=== PATIENT | female | born 1980 | race Caucasian/White ===

== ENCOUNTER 2018-05-28 03:12 | Emergency (ER) | payer SELFPAY ==
[~2018-05-28] VITALS: Ht 160 cm; Wt 56.4 kg
[2018-05-28] MEDS ORDERED: IV NORMAL SALINE 1,000ML 1,000 ML IV ONE (03:15)
[2018-05-28 03:43] LABS: BASO # 0.1 x10^3/uL (0.0-0.2); BASO % 1 % (0-3); EOS # 0.2 x10^3/uL (0.0-0.7); EOS % 3 % (0-3); HEMATOCRIT 43.3 % (36.0-47.0); HEMOGLOBIN 14.7 g/dL (12.0-15.5); LYMPH # 2.2 x10^3/uL (1.0-4.8); LYMPH % 28 % (24-48); MEAN CORPUSCULAR HEMOGLOBIN 31 pg (25-35); MEAN CORPUSCULAR HGB CONC 34 g/dL (31-37); MEAN CORPUSCULAR VOLUME 90 fL (79-100); MONO # 0.6 x10^3/uL (0.0-1.1); MONO % 7 % (0-9); NEUT # 4.7 x10^3uL (1.8-7.7); NEUT % 61 % (31-73); PLATELET COUNT 315 x10^3/uL (140-400); RED BLOOD COUNT 4.83 x10^6/uL (3.50-5.40); RED CELL DISTRIBUTION WIDTH 14.5 % (11.5-14.5); WHITE BLOOD COUNT 7.8 x10^3/uL (4.0-11.0)
[2018-05-28 03:44] LABS: BILIRUBIN,URINE NEG (NEG); CLARITY,URINE CLEAR; COLOR,URINE STRAW; GLUCOSE,URINE NEG (NEG)
[2018-05-28 03:45] LABS: BACTERIA,URINE FEW /HPF (0-FEW); NITRITE,URINE NEG (NEG); RBC,URINE RARE /HPF (0-2); SQUAMOUS EPITHELIAL CELL,UR MOD /LPF; UROBILINOGEN,URINE 0.2 mg/dL (0.2 mg/dL); WBC,URINE RARE /HPF (0-4)
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
[2018-05-28 03:49] VITALS: BP 146/95
[2018-05-28 03:50] LABS: BARBITURATES NEG (NEG); BENZODIAZEPINES NEG (NEG); CANNABINOIDS NEG (NEG); COCAINE NEG (NEG); METHADONE NEG (NEG); OPIATES NEG (NEG); PHENCYCLIDINE NEG (NEG)
[2018-05-28] MEDS ORDERED: NALOXONE 2 MG/2 ML DISP.SYRIN. IV ONE (04:00)
[2018-05-28 04:01] LABS: AMPHETAMINE/METHAMPHETAMINE POS (NEG)
[2018-05-28 04:05] LABS: ALBUMIN 3.5 g/dL (3.4-5.0); ALBUMIN/GLOBULIN RATIO 1.1 (1.0-1.7); CALCIUM 8.2 mg/dL (8.5-10.1); CREATININE 0.7 mg/dL (0.6-1.0); GFR 93.6; POTASSIUM 3.4 mmol/L (3.5-5.1); TOTAL BILIRUBIN 0.2 mg/dL (0.2-1.0); TOTAL PROTEIN 6.8 g/dL (6.4-8.2)
--- NOTE | 2018-05-28 04:19 | RAD ---
RS Compliance Statement: One or more of the following individualized dose reduction techniques were utilized for this examination: 1. Automated exposure control 2. Adjustment of the mA and/or kV according to patient size 3. Use of iterative reconstruction technique CT HEAD WITHOUT CONTRAST History: Unresponsive Comparison: None. Procedure: Axial images are obtained of the head from the skull base through the vertex without IV contrast. Findings: The ventricles and sulci are normal for the patient's age. No mass-effect, midline shift, hemorrhage, extra-axial fluid collection, or obvious acute infarction is identified. Basilar cisterns are patent. Bone windows demonstrate no acute calvarial abnormality. The visualized paranasal sinuses are clear. Mastoid air cells are well aerated. IMPRESSION: No acute intracranial abnormality. Electronically signed by: Aidan Thomas MD (05/28/2018 4:16 AM) [facility]
--- NOTE | 2018-05-28 06:28 | EKG ---
[address] [address] Test Date: 2018-05-28 Test Time: 03:22:44 Pat Name: REDD ZALDIVAR Department: Room: Gender: F Tool Die Maker: : 1980 Requested By: STONEY DWYER Order Number: [id number] Reading MD: Maxmio Sierra MD Measurements Intervals [place] Rate: 98 P: 45 UT: 152 QRS: 40 QRSD: 82 T: 68 QT: 350 QTc: 449 Interpretive Statements SINUS RHYTHM Electronically Signed On 05-31-2018 12:01:19 CDT by Maximo Sierra MD
== END 2018-05-28 04:24 | disposition short-term general hospital (02) ==
LOC: ER 03:12
DX: F15.90 Other stimulant use, unspecified, uncomplicated (principal); F10.10 Alcohol abuse, uncomplicated; Y90.6 Blood alcohol level of 120-199 mg/100 ml
CPT/HCPCS: 36415; 70450; 80053; 80307; 81001; 83605; 85025; 93005; 96374; 99285; G0480; J2310; G0479; J7030

== ENCOUNTER 2019-10-09 18:55 | Inpatient (IN) | payer SELFPAY ==
[~2019-10-09] VITALS: Ht 160 cm; Wt 61.9 kg
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
[2019-10-09] MEDS ORDERED: IV RINGERS SOLUTION,LACTATED 1,000 ML IV SCH (19:19)
[2019-10-09] MEDS ORDERED: MVI, ADULT NO.4 WITH VIT K 10 ML, FOLIC ACID INJ 1 MG, THIAMINE INJ 100 MG in IV RINGER... IV ONE ×4 (19:30)
[2019-10-09] MEDS ORDERED: THIAMINE 200 MG/2 ML VIAL. IV ONE (19:30)
[2019-10-09 19:32] LABS: BASO # 0.1 x10^3/uL (0.0-0.2); BASO % 1 % (0-3); EOS # 0.2 x10^3/uL (0.0-0.7); EOS % 3 % (0-3); HEMATOCRIT 44.2 % (36.0-47.0); HEMOGLOBIN 14.8 g/dL (12.0-15.5); LYMPH # 2.8 x10^3/uL (1.0-4.8); LYMPH % 44 % (24-48); MEAN CORPUSCULAR HEMOGLOBIN 30 pg (25-35); MEAN CORPUSCULAR HGB CONC 33 g/dL (31-37); MEAN CORPUSCULAR VOLUME 91 fL (79-100); MONO # 0.5 x10^3/uL (0.0-1.1); MONO % 8 % (0-9); NEUT # 2.8 x10^3uL (1.8-7.7); NEUT % 43 % (31-73); PLATELET COUNT 331 x10^3/uL (140-400); RED BLOOD COUNT 4.86 x10^6/uL (3.50-5.40); RED CELL DISTRIBUTION WIDTH 14.1 % (11.5-14.5); WHITE BLOOD COUNT 6.4 x10^3/uL (4.0-11.0)
[2019-10-09 19:36] LABS: CALCIUM 8.4 mg/dL (8.5-10.1); CREATININE 0.8 mg/dL (0.6-1.0); GFR 79.4; POTASSIUM 3.9 mmol/L (3.5-5.1)
[2019-10-09 19:37] LABS: ETHANOL < 10 mg/dL (0-10); SALIC 2.8 mg/dL (2.8-20.0)
[2019-10-09 19:41] LABS: BILIRUBIN,URINE NEG (NEG); CLARITY,URINE HAZY; COLOR,URINE YELLOW; GLUCOSE,URINE NEG (NEG)
[2019-10-09 19:42] LABS: NITRITE,URINE NEG (NEG); UROBILINOGEN,URINE 0.2 mg/dL (0.2 mg/dL)
[2019-10-09 19:44] LABS: BGAS PH 7.4 (7.35-7.45)
[2019-10-09 19:44] LABS: BARBITURATES NEG (NEG); BENZODIAZEPINES POS (NEG); CANNABINOIDS NEG (NEG); COCAINE NEG (NEG); METHADONE NEG (NEG); OPIATES POS (NEG); PHENCYCLIDINE NEG (NEG)
[2019-10-09 19:48] LABS: ALBUMIN 3.4 g/dL (3.4-5.0); DIRECT BILIRUBIN 0.1 mg/dL (0.0-0.2); TOTAL BILIRUBIN 0.2 mg/dL (0.2-1.0); TOTAL PROTEIN 6.5 g/dL (6.4-8.2)
[2019-10-09 19:49] LABS: AMPHETAMINE/METHAMPHETAMINE POS (NEG)
[2019-10-09 19:50] LABS: BACTERIA,URINE FEW /HPF (0-FEW); RBC,URINE OCC /HPF (0-2)
[2019-10-09] MEDS ORDERED: ONDANSETRON PF 4 MG/2 ML VIAL. IV PRN (20:00)
[2019-10-09] MEDS ORDERED: IPRATRPIUM/ALBUTEROL 0.5/2.5MG 3 ML NEBU. NEB SCH (20:00)
--- NOTE | 2019-10-09 20:04 | RAD ---
INDICATION: Altered mental status COMPARISON: None. FINDINGS: Single view of chest obtained. No focal airspace consolidation. Cardiomediastinal contour unremarkable. No acute osseous abnormality. IMPRESSION: * No focal airspace consolidation or edema. Electronically signed by: David Ku MD (10/09/2019 8:00 PM) [facility] [place]
--- NOTE | 2019-10-09 20:35 | NUR ---
Admission Note: Pt transported via EMS from ED to ICU room 2. Pt moved from cart to bed with four person assist, pt slept through transport. VSS, no c/o pain or n/v at this time. [place] to dependent drainage. IV sites x2 patent and intact. Family here to see pt. Advised pt would be allowed visitors for a short time and then no visitors until after seen my physician and cleared medically and by psych. Family agrees.
[2019-10-09 20:47] VITALS: BP 126/85
[2019-10-09 21:00] VITALS: BP 107/83
[2019-10-09] MEDS ORDERED: IPRATRPIUM/ALBUTEROL 0.5/2.5MG 3 ML NEBU. NEB PRN (21:00)
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
--- NOTE | 2019-10-09 21:45 | NUR ---
Suicide risk assessment completed at time of admission w/o family present, pt denied wanting to harm herself. Asked again after family left and pt still states she did not want to harm herself. Pt would not expand on what medications she specifically took and when.
[2019-10-09 22:00] VITALS: BP 98/64
[2019-10-09] MEDS: IV RINGERS SOLUTION,LACTATED 1,000 ML IV SCH (22:03)
[2019-10-09 23:00] VITALS: BP 92/62
[2019-10-09 23:46] LABS: SALIC 2.5 mg/dL (2.8-20.0)
[2019-10-09 23:57] LABS: ACETAMIN 32.3 mcg/mL (10-30)
[2019-10-10] VITALS (11 sets, daily range): BP systolic 92–106; BP diastolic 57–76
[2019-10-10] MEDS: IV RINGERS SOLUTION,LACTATED 1,000 ML IV SCH ×2 (02:59→08:27)
--- NOTE | 2019-10-10 05:54 | NUR ---
Pt woke up this am demanding to leave hospital. Advised pt she would need to see the physician first, pt insists on leaving hospital. Pt will stay long enough to review morning labs. Will continue to monitor.
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
--- NOTE | 2019-10-10 06:15 | EKG ---
[address] [address] Test Date: 2019-10-09 Test Time: 19:04:45 Pat Name: REDD ZALDIVAR Department: Room: Gender: F Hand Presser: : 1980 Requested By: DAVID BATES Order Number: [id number] Reading MD: Measurements Intervals [place] Rate: 83 P: 64 IA: 142 QRS: 44 QRSD: 80 T: 52 QT: 368 QTc: 438 Interpretive Statements SINUS RHYTHM CONSIDER RIGHT VENTRICULAR HYPERTROPHY QRS(T) CONTOUR ABNORMALITY CONSIDER ANTEROLATERAL MYOCARDIAL DAMAGE POSSIBLY ABNORMAL ECG RI6.01 No previous ECG available for comparison
[2019-10-10 06:41] LABS: BASO # 0.1 x10^3/uL (0.0-0.2); BASO % 1 % (0-3); EOS # 0.2 x10^3/uL (0.0-0.7); EOS % 4 % (0-3); HEMATOCRIT 40.6 % (36.0-47.0); HEMOGLOBIN 13.5 g/dL (12.0-15.5); LYMPH # 3.5 x10^3/uL (1.0-4.8); LYMPH % 60 % (24-48); MEAN CORPUSCULAR HEMOGLOBIN 30 pg (25-35); MEAN CORPUSCULAR HGB CONC 33 g/dL (31-37); MEAN CORPUSCULAR VOLUME 91 fL (79-100); MONO # 0.5 x10^3/uL (0.0-1.1); MONO % 9 % (0-9); NEUT # 1.5 x10^3uL (1.8-7.7); NEUT % 26 % (31-73); PLATELET COUNT 265 x10^3/uL (140-400); RED BLOOD COUNT 4.44 x10^6/uL (3.50-5.40); RED CELL DISTRIBUTION WIDTH 14.3 % (11.5-14.5); WHITE BLOOD COUNT 5.9 x10^3/uL (4.0-11.0)
[2019-10-10 06:49] LABS: CALCIUM 7.8 mg/dL (8.5-10.1); CREATININE 0.8 mg/dL (0.6-1.0); GFR 79.4; POTASSIUM 3.9 mmol/L (3.5-5.1)
[2019-10-10 06:54] LABS: ACETAMIN 17.2 mcg/mL (10-30); SALIC 2.4 mg/dL (2.8-20.0)
[2019-10-10 08:39] LABS: % ATYL 2 % (0-0); % EOS 1 % (0-5); % LYMPHS 60 % (24-48); % MONOS 8 % (0-10); % SEGS 29 % (35-66); PLT ESTIMATE ADEQUATE (ADEQUATE)
[2019-10-10] MEDS ORDERED: MVI, ADULT NO.4 WITH VIT K 10 ML, FOLIC ACID INJ 1 MG, THIAMINE INJ 100 MG in IV RINGER... IV SCH ×4 (09:00)
--- NOTE | 2019-10-10 13:01 | NUR ---
Discharge Note: AGAINST MEDICAL ADVICE: Patient requested to leave AMA. Stated " i don't have to stay here, I am leaving now." This nurse educated patient on the risks and consequences involved in leaving the hospital at this time. Patient verbally verified understanding of education received. Patient was alert and oriented x4, speech clear, and was able to make wants and needs known. Patient left hospital with daughter at side. Dr. Steiner verbalyl notified, security verbally notified, supervisor backfilling verbally notified.
--- NOTE | 2019-10-10 23:30 | NUR ---
Poison Control called to follow up with pt's status. Informed them that pt left AMA earlier today around 1300. Poison Control requesting lab results from this AM draw and results given that we had. Poison Control asked for labs that we did not draw this AM. Poison Control requesting that if we still have blood available to run test on that they would like to run some. Requesting AST, ALT, INR and total bilirubin. Dr Steiner called and gave orders. Lab informed and will run what they can on the blood that we have. Follow up call with Poison Control at .
[2019-10-11 00:09] LABS: ALBUMIN 2.7 g/dL (3.4-5.0); DIRECT BILIRUBIN 0.1 mg/dL (0.0-0.2); TOTAL BILIRUBIN 0.1 mg/dL (0.2-1.0); TOTAL PROTEIN 5.2 g/dL (6.4-8.2)
== END 2019-10-10 13:06 | disposition left against medical advice (07) | DRG 918 ==
LOC: ER 18:55 → ICU 19:45
PROVIDERS: ADMIT Internal Medicine; ATTEND Internal Medicine
DX: T43.621A Poisoning by amphetamines, accidental (unintentional), initial encounter (principal); Y92.89 Other specified places as the place of occurrence of the external cause; Z79.899 Other long term (current) drug therapy; Z53.29 Procedure and treatment not carried out because of patient's decision for other reasons
CPT/HCPCS: 36415; 36600; 51702; 71045; 80048; 80076; 80307; 80329; 81001; 82550; 82803; 83690; 83735; 83880; 84443; 84484; 84702; 85007; 85025; 85379; 85610; 85730; 87086; 93005; 96365; G0480; J7120; 82003; 99285-25

== ENCOUNTER 2022-02-10 13:18 | Emergency (ER) | payer SELFPAY ==
[~2022-02-10] VITALS: Ht 160 cm; Wt 64.5 kg
[2022-02-10] MEDS ORDERED: IV NORMAL SALINE 1,000ML 1,000 ML IV SCH (14:15)
[2022-02-10] MEDS ORDERED: ONDANSETRON PF 4 MG/2 ML VIAL. IVP ONE (14:15)
--- NOTE | 2022-02-10 14:38 | PHYS DOC ---
Past History Past Medical History: No Pertinent History Past Surgical History: No Surgical History Alcohol Use: Heavy Drug Use: Benzodiazepine, Methamphetamine Adult General Chief Complaint Chief Complaint: ABDOMINAL PAIN HPI HPI Patient is a 41 year old female who presents with complaint of left-sided abdominal pain. The patient states her symptoms have been present over the past 2 days. Notes that the pain has been constant and describes it as sharp. Worsens with movement. States that she initially had an episode of vomiting when her symptoms first started. Denies nausea, fever, or diarrhea currently. States that the pain does not radiate into her pelvis or back. Has tried taking [id number] medication with no significant improvement in symptoms. Denies vaginal bleeding hematuria, dysuria, or increased urinary frequency. Review of Systems Review of Systems Constitutional: Denies fever or chills [] Eyes: Denies change in visual acuity, redness, or eye pain [] HENT: Denies nasal congestion or sore throat [] Respiratory: Denies cough or shortness of breath [] Cardiovascular: Denies chest pain or edema [] GI: Abdominal pain, nausea, vomiting, denies bloody stools or diarrhea [] : Denies dysuria or hematuria [] Musculoskeletal: Denies back pain or joint pain [] Integument: Denies rash or skin lesions [] Neurologic: Denies headache, focal weakness or sensory changes [] All other systems were reviewed and found to be within normal limits, except as documented in this note. Current Medications Current Medications Current Medications Medications (Trade) Dose Ordered Sig/Randy Start Time Stop Time Status Last Admin Dose Admin Fentanyl Citrate (Fentanyl 2ml Vial) 50 mcg PRN Q15MIN PRN 02/10/22 14:15 02/11/22 14:14 Ondansetron HCl (Zofran) 4 mg 1X ONCE 02/10/22 14:15 02/10/22 14:34 DC Sodium Chloride 1,000 ml @ 1,000 mls/hr Q1H 02/10/22 14:15 02/10/22 15:14 Allergies Allergies Allergies Coded Allergies Type Severity Reaction Last Updated Verified No Known Drug Allergies 02/10/22 No Physical Exam Physical Exam Constitutional: Alert, afebrile, appears in moderate discomfort. [] HENT: Normocephalic, atraumatic, bilateral external ears normal, oropharynx moist, no oral exudates, nose normal. [] Eyes: PERRLA, EOMI, conjunctiva normal, no discharge. [] Neck: Normal range of motion, no tenderness, supple, no stridor. [] Cardiovascular:Heart rate regular rhythm, no murmur [] Lungs & Thorax: Bilateral breath sounds clear to auscultation [] Abdomen: Bowel sounds normal, soft, no tenderness, no masses, no pulsatile masses. [] Skin: Warm, dry, no erythema, no rash. [] Back: No midline tenderness, left CVA tenderness present. [] Extremities: No tenderness, no cyanosis, no clubbing, ROM intact, no edema. [] Neurologic: Alert and oriented X 3, normal motor function, normal sensory function, no focal deficits noted. [] Current Patient Data Vital Signs Vital Signs Date Time Temp Pulse Resp B/P (MAP) Pulse Ox O2 Delivery O2 Flow Rate FiO2 02/10/22 14:00 98.4 99 20 114/78 (90) 100 Room Air Lab Results Laboratory Tests Test 02/10/22 14:06 02/10/22 14:25 02/10/22 14:30 Bedside Urine HCG, Qualitative hcg negative White Blood Count 12.2 x10^3/uL Red Blood Count 4.78 x10^6/uL Hemoglobin 13.9 g/dL Hematocrit 42.3 % Mean Corpuscular Volume 88 fL Mean Corpuscular Hemoglobin 29 pg Mean Corpuscular Hemoglobin Concent 33 g/dL Red Cell Distribution Width 16.4 % Platelet Count 281 x10^3/uL Neutrophils (%) (Auto) 81 % Lymphocytes (%) (Auto) 13 % Monocytes (%) (Auto) 6 % Eosinophils (%) (Auto) 0 % Basophils (%) (Auto) 0 % Neutrophils # (Auto) 9.9 x10^3uL Lymphocytes # (Auto) 1.5 x10^3/uL Monocytes # (Auto) 0.7 x10^3/uL Eosinophils # (Auto) 0.0 x10^3/uL Basophils # (Auto) 0.0 x10^3/uL Sodium Level 137 mmol/L Potassium Level 4.0 mmol/L Chloride Level 101 mmol/L Carbon Dioxide Level 26 mmol/L Anion Gap 10 Blood Urea Nitrogen 7 mg/dL Creatinine 1.0 mg/dL Estimated GFR (Cockcroft-Gault) 60.8 BUN/Creatinine Ratio 7 Glucose Level 93 mg/dL Calcium Level 9.2 mg/dL Total Bilirubin 1.0 mg/dL Aspartate Amino Transf (AST/SGOT) 28 U/L Alanine Aminotransferase (ALT/SGPT) 30 U/L Alkaline Phosphatase 65 U/L Total Protein 7.0 g/dL Albumin 3.0 g/dL Albumin/Globulin Ratio 0.8 Lipase 60 U/L Urine Collection Type Unknown Urine Color Yellow Urine Clarity Cloudy Urine pH 5.5 Urine Specific [place] 1.020 Urine Protein 100 mg/dl Urine Glucose (UA) Neg mg/dL Urine Ketones (Stick) Trace mg/dL Urine Blood Large Urine Nitrite Pos Urine Bilirubin Small Urine Urobilinogen Dipstick 4.0 mg/dL Urine Leukocyte Esterase Mod Urine RBC 1-2 /HPF Urine WBC >40 /HPF Urine Squamous Epithelial Cells Few /LPF Urine Bacteria Few /HPF Urine Mucus Slight /LPF Urine Test Negative Current Medications Medications (Trade) Dose Ordered Sig/Randy Route PRN Reason Start Time Stop Time Status Last Admin Dose Admin Fentanyl Citrate (Fentanyl 2ml Vial) 50 mcg PRN Q15MIN PRN IV PAIN GREATER THAN 3/10 02/10/22 14:15 02/11/22 14:14 02/10/22 15:36 Sodium Chloride 1,000 ml @ 1,000 mls/hr Q1H IV 02/10/22 14:15 02/10/22 15:14 DC 02/10/22 14:15 Ondansetron HCl (Zofran) 4 mg 1X ONCE IVP 02/10/22 14:15 02/10/22 14:34 DC 02/10/22 14:47 Ceftriaxone Sodium 1 gm/ Sodium Chloride 50 ml @ 100 mls/hr 1X ONCE IV 02/10/22 15:45 02/10/22 16:14 DC 02/10/22 15:45 Ketorolac Tromethamine (Toradol 15mg Vial) 15 mg 1X ONCE IVP 02/10/22 16:15 02/10/22 16:16 DC 02/10/22 16:21 Sodium Chloride 50 ml @ As Directed STK-MED ONCE .ROUTE 02/10/22 16:15 02/10/22 16:15 DC Ceftriaxone Sodium (Rocephin) 1 gm STK-MED ONCE .ROUTE 02/10/22 16:15 02/10/22 16:15 DC EKG EKG Not performed [] Radiology/Procedures Radiology/Procedures [address] [id number] IMAGING REPORT Signed PATIENT: REDD ZALDIVAR ACCOUNT: [id number] : 1980 LOCATION: ER AGE: 41 SEX: F EXAM STATUS: REG ER ORD. PHYSICIAN: NUBIA SOLORIO MD REASON: LLQ abdominal pain PROCEDURE: CT ABDOMEN PELVIS WO CONTRAST EXAMINATION: CT ABDOMEN+PELVIS WO CLINICAL HISTORY: LLQ abdominal pain. TECHNIQUE: Imaging of the abdomen and pelvis was performed without intravenous contrast using standard technique, scanning from just above the dome of the diaphragm to the symphysis pubis. Unenhanced imaging is limited for the evaluation of some intra-abdominal and pelvic pathology. CT Dose Reduction Employed: One or more of the following individualized dose reduction techniques were utilized for this examination: 1. Automated exposure control 2. Adjustment of the mA and/or kV according to patient size 3. Use of iterative reconstruction technique. COMPARISON: None FINDINGS: Visualized heart and lungs unremarkable. Liver, gallbladder, pancreas, spleen, and adrenal glands unremarkable. Mild left perinephric stranding. No urolithiasis or evidence of obstructive uropathy. Right kidney unremarkable. Minimally filled urinary bladder suboptimally evaluated. Uterus and ovaries unremarkable on limited evaluation. Minimal pelvic free fluid, likely physiologic. No dilated bowel. Moderate diverticulosis in the distal colon. Appendix within normal limits. Mild arterial atherosclerotic calcification without aneurysm. No evidence of acute osseous abnormality. IMPRESSION: Nonspecific mild left perinephric stranding, incompletely evaluated given lack of intravenous contrast but could be related to pyelonephritis in the appropriate clinical setting. No urolithiasis or evidence of obstructive uropathy. Distal colonic diverticulosis. Electronically signed by: Dereck Jimenez DO (02/10/2022 2:42 PM) [facility] DICTATED AND SIGNED BY: DERECK JIMENEZ DO DATE: 02/10/22 1430 CC: NUBIA SOLORIO MD; PCP,NO ~ [] Heart Score C/O Chest Pain: No Risk Factors: Risk Factors: DM, Current or recent (<one month) smoker, HTN, HLP, family history of CAD, obesity. Risk Scores: Risk Factors: DM, Current or recent (<one month) smoker, HTN, HLP, family history of CAD, obesity. Course & Med Decision Making Course & Med Decision Making Pertinent Labs and Imaging studies reviewed. (See chart for details) Patient was started on fentanyl, Zofran, and IV fluids in the emergency department. Lab work and CT imaging reviewed. Examination and findings appear consistent with acute pyelonephritis. Given IV Rocephin in the emergency department. Vital signs are stable at this time and patient is appropriate for discharge. Prescribed [place], Zofran, and 10-day course of Vantin for outpatient treatment. Recommend follow-up with primary care in the next 3 to 5 days for reevaluation if symptoms or not improving and return to the emergency department for any worsening symptoms. Patient voiced understanding and in agreement with treatment plan. [] Dragon Disclaimer Dragon Disclaimer This electronic medical record was generated, in whole or in part, using a voice recognition dictation system. Departure Departure: Impression: Primary Impression: Acute pyelonephritis Disposition: HOME / SELF CARE / HOMELESS Condition: IMPROVED Referrals: PCP,GUTIERREZ (PCP) Patient Instructions: Pyelonephritis, Adult Additional Instructions: Return to the emergency department for any worsening symptoms. Scripts Ondansetron (ONDANSETRON ODT) 4 Mg Tab.rapdis 1 TAB PO Q8HRS PRN for NAUSEA/VOMITING, #16 TAB Prov: NUBIA SOLORIO MD 02/10/22 Cefpodoxime Proxetil (CEFPODOXIME PROXETIL) 200 Mg Tablet 1 TAB PO BID, #20 TAB Prov: NUBIA SOLORIO MD 02/10/22 Hydrocodone Bit/Acetaminophen (HYDROCODONE-APAP 5-325 ) 1 Each Tablet 1 TAB PO Q6HRS PRN for PAIN, #12 TAB 0 Refills Prov: NUBIA SOLORIO MD 02/10/22 NUBIA SOLORIO MD February 10, 2022 14:38
--- NOTE | 2022-02-10 14:45 | RAD ---
EXAMINATION: CT ABDOMEN+PELVIS WO CLINICAL HISTORY: LLQ abdominal pain. TECHNIQUE: Imaging of the abdomen and pelvis was performed without intravenous contrast using standar d technique, scanning from just above the dome of the diaphragm to the symphysis pubis. Unenhanced i maging is limited for the evaluation of some intra-abdominal and pelvic pathology. CT Dose Reduction Employed: One or more of the following individualized dose reduction techniques wer e utilized for this examination: 1. Automated exposure control 2. Adjustment of the mA and/or kV ac cording to patient size 3. Use of iterative reconstruction technique. COMPARISON: None FINDINGS: Visualized heart and lungs unremarkable. Liver, gallbladder, pancreas, spleen, and adrenal glands unremarkable. Mild left perinephric stranding. No urolithiasis or evidence of obstructive uropathy. Right kidney un remarkable. Minimally filled urinary bladder suboptimally evaluated. Uterus and ovaries unremarkable on limited e valuation. Minimal pelvic free fluid, likely physiologic. No dilated bowel. Moderate diverticulosis in the distal colon. Appendix within normal limits. Mild arterial atherosclerotic calcification without aneurysm. No evidence of acute osseous abnormality. IMPRESSION: Nonspecific mild left perinephric stranding, incompletely evaluated given lack of intravenous contras t but could be related to pyelonephritis in the appropriate clinical setting. No urolithiasis or evid ence of obstructive uropathy. Distal colonic diverticulosis. Electronically signed by: Dereck Pickens DO (02/10/2022 2:42 PM) [facility]
[2022-02-10 14:57] LABS: BASO % 0 % (0-3); CALCIUM 9.2 mg/dL (8.5-10.1); EOS % 0 % (0-3); GFR 60.8; HEMATOCRIT 42.3 % (36.0-47.0); HEMOGLOBIN 13.9 g/dL (12.0-15.5); LYMPH # 1.5 x10^3/uL (1.0-4.8); LYMPH % 13 % (24-48); MEAN CORPUSCULAR HEMOGLOBIN 29 pg (25-35); MEAN CORPUSCULAR HGB CONC 33 g/dL (31-37); MEAN CORPUSCULAR VOLUME 88 fL (79-100); MONO # 0.7 x10^3/uL (0.0-1.1); MONO % 6 % (0-9); NEUT # 9.9 x10^3uL (1.8-7.7); NEUT % 81 % (31-73); PLATELET COUNT 281 x10^3/uL (140-400); RED BLOOD COUNT 4.78 x10^6/uL (3.50-5.40); RED CELL DISTRIBUTION WIDTH 16.4 % (11.5-14.5); WHITE BLOOD COUNT 12.2 x10^3/uL (4.0-11.0)
[2022-02-10 15:07] LABS: ALBUMIN/GLOBULIN RATIO 0.8 (1.0-1.7)
[2022-02-10 15:56] LABS: CLARITY,URINE CLOUDY; COLOR,URINE YELLOW; GLUCOSE,URINE NEG (NEG)
[2022-02-10 15:57] LABS: BACTERIA,URINE FEW /HPF (0-FEW); NITRITE,URINE POS (NEG); SQUAMOUS EPITHELIAL CELL,UR FEW /LPF; U PREG PATIENT NEGATIVE (NEG); WBC,URINE >40 /HPF (0-4)
[2022-02-10] MEDS ORDERED: cefTRIAXone SODIUM 1 GM VIAL ONE (16:15)
[2022-02-10] MEDS ORDERED: KETOROLAC 15 MG/ML VIAL. IVP ONE (16:15)
[2022-02-10] MEDS ORDERED: IV NORMAL SALINE 50ML 50 ML ONE (16:15)
[2022-02-10] MEDS ORDERED: CEFP200T PO (16:28)
[2022-02-10] MEDS ORDERED: HYDR-2155 PO (16:28)
[2022-02-10] MEDS ORDERED: ONDA4TAB12 PO (16:28)
[2022-02-10 16:30] VITALS: BP 112/87
== END 2022-02-10 16:17 | disposition home or self-care (01) ==
LOC: ER 13:18
DX: N10 Acute pyelonephritis (principal); F15.10 Other stimulant abuse, uncomplicated
CPT/HCPCS: 36415; 74176; 80053; 81001; 81025; 83690; 85025; 87077; 87086; 87186; 96361; 96365; 96375; 99284; J0696; J1885; J2405; J3010; J7030